=== PATIENT | male | born 1975 | race African-American/Black ===

== ENCOUNTER 2017-06-02 07:41 | Emergency (ER) | payer OTHER ==
[~2017-06-02 07:41] MED LIST: DOXYCYCLINE150 MG PO; GLUCOPHAGE500 MG PO; HIGH BLOOD PRESSURE PO; MIRAPEX
[2017-06-02] MEDS ORDERED: HIV MED (07:54)
[2017-06-02] MEDS ORDERED: BP MED (07:54)
[2017-06-02] MEDS ORDERED: HUMALOG100 UNIT/2 SUBQ (07:55)
[2017-06-02] MEDS ORDERED: LANTUS100 U/ML SUBQ (07:55)
== END 2017-06-02 08:27 | disposition home or self-care (01) ==
LOC: SED 07:41
DX: H65.92 Unspecified nonsuppurative otitis media, left ear (principal)
CPT/HCPCS: 99283